=== PATIENT | female | born 1985 | race Caucasian/White ===

== ENCOUNTER 2021-11-25 16:40 | Emergency (ER) | payer OTHER ==
[~2021-11-25] VITALS: Ht 177.8 cm; Wt 78.5 kg
--- NOTE | 2021-11-25 16:45 | NUR ---
Patient to ER bed 5 to gown for evaluation. Side rails up. Report given to KHADIJAH VILLAGRAN. PER CN, NO SITTER AT THIS TIME, NO العلي TO LOCK CABINETS. PT VERBALIZES SI WITH NO PLAN AT THIS TIME.
[2021-11-25 17:03] VITALS: BP_SYST 136
--- NOTE | 2021-11-25 18:22 | NUR ---
36YO F C/O ANXIETY, DEPRESSION AND SUICIDAL IDEATIONS X FEW WEEKS. PT STATES SHE IS GOING THROUGH A DIVORCE AND IS HAVING A DIFFICULT TIME WITH FINANCES. SHE HAS BEEN HAVING THOUGHTS SUCH "PEOPLE ARE BETTER OFF WITHOUT ME" BUT HAS NO CONCRETE PLAN OF HURTING HERSELF. PT STATES SHE WAS PREVIOUSLY DIAGNOSED WITH DEPRESSION AT 19YO. CURRENTLY NOT TAKING ANY PSYCH MEDS AND NOT SEEING PSYCHIATRIST. IN ED, VSS. AOX3. PT CALM AND COOPERATIVE BUT IN LOW MOOD. NORMAL RATE REGULAR RHYTHM. CLEAR BREATH SOUNDS. ERMD MADE AWARE OF PT STATUS.
[2021-11-25 18:32] LABS: BASOPHILS % (AUTO) 0.2 % (0.0-2.0); EOSINOPHILS # (AUTO) 0.1 K/uL (0.0-0.4); EOSINOPHILS % (AUTO) 0.6 % (0.0-4.0); HEMATOCRIT 40.7 % (36-48); HEMOGLOBIN 13.9 g/dL (12.0-16.0); LYMPHOCYTES # (AUTO) 2.3 K/uL (1.0-5.5); LYMPHOCYTES % (AUTO) 16.5 % (20.5-51.5); MEAN CORPUSCULAR HEMOGLOBIN 31 pg (27-31); MEAN CORPUSCULAR HGB CONC 34 % (32-36); MEAN CORPUSCULAR VOLUME 92 fL (79.0-98.0); MONOCYTES # (AUTO) 0.4 K/uL (0.0-1.0); MONOCYTES % (AUTO) 3.1 % (1.7-9.3); NEUTROPHILS # (AUTO) 10.9 K/uL (1.8-7.7); NEUTROPHILS % (AUTO) 79.6 % (40.0-70.0); PLATELET COUNT (AUTO) 273 K/uL (130-430); RED BLOOD CELL COUNT(AUTO) 4.43 MIL/uL (4.2-6.2); RED CELL DISTRIBUTION WIDTH 13.5 % (9.0-15.0); WHITE BLOOD COUNT (AUTO) 13.7 K/uL (4.8-10.8)
--- NOTE | 2021-11-25 18:34 | NUR ---
COVID QUINTIN SWAB OBTAINED AND SENT TO THE LAB.
[2021-11-25 18:40] LABS: ANION GAP 4 (5-15); CALCIUM 8.9 mg/dL (8.4-11.0); CHLORIDE 107 mmol/L (98-107); CREATININE 0.89 mg/dL (0.55-1.30); GLUCOSE 81 mg/dL (70-99); SODIUM SERUM 141 mmol/L (136-145); UREA NITROGEN, BLOOD 11 mg/dL (8-21)
[2021-11-25 18:42] LABS: GFR AFRICAN AMERICAN 92 mL/min (>90)
[2021-11-25 18:52] LABS: ALANINE AMINOTRANSFERASE 17 U/L (12-78); ALBUMIN 3.5 g/dL (3.4-4.8); ASPARTATE AMINOTRANSFERASE 16 U/L (10-37); TOTAL BILIRUBIN 0.3 mg/dL (0.0-1.0)
--- NOTE | 2021-11-25 19:16 | NUR ---
REPORT GIVEN TO TYSHAWN STANTON. ALL CARES TRANSFERRED AT THIS TIME.
[2021-11-25 19:20] LABS: BILIRUBIN,URINE NEGATIVE (NEGATIVE); BLOOD, URINE NEGATIVE (NEGATIVE); CLARITY/URINE CLEAR (CLEAR); COLOR,URINE YELLOW (YELLOW); GLUCOSE,URINE NEGATIVE (NEGATIVE); KETONES,URINE NEGATIVE (NEGATIVE); LEUKOCYTE ESTERASE ,URINE 2+ (NEGATIVE); NITRITE, URINE NEGATIVE (NEGATIVE); PH,URINE 6.5 (5.0-8.0); PROTEIN URINE NEGATIVE (NEGATIVE); UROBILINOGEN,URINE 0.2 (0.2-1.0)
[2021-11-25 19:45] LABS: BARBITURATE, URINE NEGATIVE (NEG <=200)
[2021-11-25 19:46] LABS: BENZODIAZEPINE, URINE NEGATIVE (NEG <=150); COCAINE, URINE NEGATIVE (NEG <=150); METHAMPHETAMINES SCREEN,URINE NEGATIVE (NEG <=500); URINE AMPHETAMINE NEGATIVE (NEG <=500); URINE METHADONE NEGATIVE (NEG <=200)
[2021-11-25 19:47] LABS: CANNABINOID, URINE POSITIVE (NEG <=50); OPIATE, URINE NEGATIVE (NEG <=100); PHENCYCLIDINE SCREEN,URINE NEGATIVE (NEG <=25); UR TRICYCLIC ANTIDEPRESSANTS NEGATIVE (NEG <=300); URINE OXYCODONE SCREEN NEGATIVE (NEG <=100); URINE PROPOXYPHENE SCREEN NEGATIVE (NEG <=300)
[2021-11-25] MEDS: MELATONIN 5 MG TABLET PO ONE (19:51)
[2021-11-25] MEDS: NICOTINE 14 MG/24 HR PATCH.TD24 TD SCH (19:51)
[2021-11-25] MEDS: QUEtiapine FUMARATE 25 MG TABLET PO SCH (19:51)
[2021-11-25 20:06] LABS: BACTERIA,URINE RARE /HPF (None Seen); MUCUS,URINE None Seen /LPF (None Seen); RBC,URINE NONE SEEN /HPF (0-3)
[2021-11-25 20:07] LABS: ACETAMINOPHEN < 1 ug/mL (1-30)
[2021-11-25 20:18] LABS: ALCOHOL, BLOOD < 3 mg/dL (<10)
[2021-11-25] MEDS ORDERED: LORA-258 PO (21:24)
--- NOTE | 2021-11-25 21:24 | NUR ---
PT STATES SHE WANTS TO LEAVE; MOTHER WAS AT BEDSIDE AND STATES SHE CAN WATCH OVER HER. PER PT SHE HAS A SAFEHAVEN. MD WILL SPEAK TO PATIENT. WILL GET RESOURCES.
--- NOTE | 2021-11-25 21:40 | NUR ---
Spoke to Artificial Breeding DistributorWin via telephone at this time regarding patient's desire to leave the facility. Pt states to me at this time "I feel like I am at the end of my rope and I just want to go home and smoke a cigarette and find my own psychiatrist".
--- NOTE | 2021-11-25 21:41 | NUR ---
SITUATION ESCALATED TO KEY FILER; WILL SPEAK TO PT REGARDING HER BEING SAFE AT HOME SINCE SHE STATES SHE'S HAVING PROBLEMS AT HOME
--- NOTE | 2021-11-25 21:45 | NUR ---
Win, Custom Studio Coordinator speaking with patient at this time.
--- NOTE | 2021-11-25 21:48 | NUR ---
PT WILL BE HAVE TO LEAVE AGAINST MEDICAL ADVICE; ED MD AT BEDSIDE SPEAKING OF RISKS OF LEAVING AMA. CANNOT KEEP HER IF SHE WANTS TO LEAVE, WRITTEN RESOURCES GIVEN; PT CHANGED INTO CLOTRHES. ALL BLONGINGS WITH PT. VSS. PT LEFT FACILITY AMBULATORY IN STABLE CONDITION.
--- NOTE | 2021-11-25 21:53 | NUR ---
Patient does not wish to proceed with medical care recommended by MD. CASILLAS. Patient given information related to possible complications, up to and including , which could occur as a result of leaving hospital at this time. Patient verbalizes understanding of risks involved leaving against medical advice. Patient has signed AMA form.
[2021-11-25 23:01] VITALS: BP_SYST 120
== END 2021-11-25 23:01 | disposition left against medical advice (07) ==
LOC: SED 16:40
DX: F33.3 Major depressive disorder, recurrent, severe with psychotic symptoms (principal); F41.0 Panic disorder [episodic paroxysmal anxiety]; R45.88 Nonsuicidal self-harm; F12.90 Cannabis use, unspecified, uncomplicated; F17.210 Nicotine dependence, cigarettes, uncomplicated; Z79.899 Other long term (current) drug therapy; Z20.822 Contact with and (suspected) exposure to COVID-19
CPT/HCPCS: 99285; 87426; 80307; 80053; 81000; 85025; 87086; 36415; 81025; G0482; G0480; G0481